=== PATIENT | male | born 1960 | race Caucasian/White ===

== ENCOUNTER 2017-12-24 07:33 | Emergency (ER) | payer BC ==
[~2017-12-24] VITALS: Ht 182.9 cm; Wt 72.3 kg
[~2017-12-24 07:33] MED LIST: NORCO 5/3251 TABLET PO
[2017-12-24 07:55] LABS: APPEARANCE CLEAR ((CLEAR)); BILIRUBIN NEGATIVE; BLOOD NEGATIVE; COLOR YELLOW ((YELLOW)); GLUCOSE (STRIP) NEGATIVE; KETONES NEGATIVE; LEUKOCYTES NEGATIVE; NITRITE NEGATIVE; PROTEIN (STRIP) NEGATIVE; SPECIFIC GRAVITY 1.019 (1.000-1.030); UCUL ADDED? NO; UROBILINOGEN 0.2 MG/DL (0.2-1.0)
[2017-12-24 08:54] LABS: HEMATOCRIT 43.4 % (38.0-50.0); HEMOGLOBIN 15.2 G/DL (12.5-16.6); MCV 94.3 FL (86-99); PLATELET COUNT 210 K/uL (156-360); RBC DIS.WIDTH-CV 11.9 % (11.8-14.6); RBC DIS.WIDTH-SD 40.9 % (39-53); WHITE BLOOD COUNT 7.1 K/uL (4.1-10.2)
[2017-12-24 09:04] LABS: CHLORIDE 106 mEq/L (99-109); POTASSIUM 4.4 mEq/L (3.7-5.4); SODIUM 137 mEq/L (136-147)
[2017-12-24 09:05] LABS: GLUCOSE 93 mg/dL (70-99)
[2017-12-24 09:09] LABS: CREATININE 0.9 mg/dL (0.6-1.3); GFR ESTIMATE (CALCULATED) > 59 mL/min/ (58.99-99999)
[2017-12-24 09:10] LABS: UREA NITROGEN (BUN) 14 mg/dL (9-23)
[2017-12-24] MEDS ORDERED: PERCOCET 5/31 TABLET PO (10:05)
[2017-12-24] MEDS ORDERED: FLEXERIL10 MG PO (10:05)
[2017-12-24 10:27] VITALS: BP 168/100
== END 2017-12-24 10:27 | disposition home or self-care (01) ==
LOC: EME 07:33
DX: S22.000A Wedge compression fracture of unspecified thoracic vertebra, initial encounter for closed fracture (principal); X50.9XXA Other and unspecified overexertion or strenuous movements or postures, initial encounter; Y93.89 Activity, other specified; F17.200 Nicotine dependence, unspecified, uncomplicated; Z88.5 Allergy status to narcotic agent
CPT/HCPCS: 71046; 72070; 80048; 81003; 85027; 99281; 99284